=== PATIENT | female | born 2000 | race Caucasian/White ===

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

== ENCOUNTER 2021-01-31 05:40 | Emergency (ER) | payer MEDICAID ==
[~2021-01-31] VITALS: Ht 165.1 cm; Wt 56.8 kg
[2021-01-31] MEDS ORDERED: SODIUM CHLORIDE 0.9% 1,000ML IVBOLUS ONE (06:00)
[2021-01-31] MEDS ORDERED: SODIUM CHLORIDE FLUSH 10ML SYR IVF ONE (06:00)
[2021-01-31 06:20] LABS: BASOPHILS % (AUTO) 0 % (0-1); EOSINOPHILS % (AUTO) 0 % (1-7); LYMPHOCYTES % (AUTO) 14 % (22-44); MEAN CORPUSCULAR HEMOGLOBIN 33.1 pg (27.0-34.8); MEAN CORPUSCULAR HGB CONC 34.7 g/dL (32.4-35.8); MEAN PLATELET VOLUME 6.9 fL (7.4-10.4); MONOCYTES % (AUTO) 12 % (2-9); NEUTROPHILS % (AUTO) 74 % (42-75); PLATELET COUNT 210 x10^3/uL (130-400); RED BLOOD COUNT 4.29 x10^6/uL (3.82-5.3); RED CELL DISTRIBUTION WIDTH 12.7 % (9.6-15.2)
[2021-01-31 06:33] LABS: ALANINE AMINOTRANSFERASE 20 U/L (12-78); ALBUMIN 3.2 g/dL (3.4-5.0); ANION GAP 8 mmol/L (5-15); CALCIUM 7.9 mg/dL (8.5-10.1); CHLORIDE 106 mmol/L (98-107); CREATININE 0.37 mg/dL (0.55-1.02)
[2021-01-31 06:49] LABS: ALKALINE PHOSPHATASE 50 U/L (45-117); BILIRUBIN,TOTAL 0.5 mg/dL (0.2-1.0); TOTAL PROTEIN 7.2 g/dL (6.4-8.2)
--- NOTE | 2021-01-31 06:57 | NUR ---
RECEIVED REPORT FROM JACKSON JESUS RN. PT RESTING ON APOORVA. VSS. UA COLLECTED, LABELED AND SENT TO LAB.
[2021-01-31 07:40] LABS: MICROSCOPIC INDICATED
--- NOTE | 2021-01-31 07:59 | NUR ---
PT CHART REVIEWED AND PLACED FOR RECHECK.
--- NOTE | 2021-01-31 08:00 | NUR ---
PT RESTING ON GURNEY. NADN. AGUILAR.
[2021-01-31 08:34] LABS: MICROSCOPIC NOT IND
[2021-01-31 09:06] VITALS: BP 101/59
--- NOTE | 2021-01-31 09:07 | NUR ---
PT RESTING ON GURNEY. NADN. AGUILAR.
== END 2021-01-31 09:30 | disposition home or self-care (01) ==
LOC: ED 06:03
DX: O21.1 Hyperemesis gravidarum with metabolic disturbance (principal); Z3A.13 13 weeks gestation of pregnancy; J45.909 Unspecified asthma, uncomplicated; Z86.718 Personal history of other venous thrombosis and embolism
CPT/HCPCS: 36415; 76801; 80053; 81001; 81003; 84702; 85025; 87086; 96360; 99284; J7030

== ENCOUNTER 2021-02-04 16:31 | Emergency (ER) | payer MEDICAID ==
[~2021-02-04] VITALS: Ht 165.1 cm; Wt 55.0 kg
[2021-02-04 17:16] VITALS: BP 97/57
--- NOTE | 2021-02-04 17:50 | NUR ---
No answer in lobby
--- NOTE | 2021-02-04 17:55 | NUR ---
no answer x 2 for xray lab couldn't find them either
--- NOTE | 2021-02-04 18:22 | NUR ---
no answer in lobby
== END 2021-02-04 18:25 | disposition left against medical advice (07) ==
LOC: ED 17:00
DX: O26.892 Other specified pregnancy related conditions, second trimester (principal); R06.00 Dyspnea, unspecified; Z20.822 Contact with and (suspected) exposure to COVID-19; Z3A.14 14 weeks gestation of pregnancy
CPT/HCPCS: 99281

== ENCOUNTER 2021-03-04 07:22 | Emergency (ER) | payer MEDICAID ==
[~2021-03-04] VITALS: Ht 162.6 cm; Wt 56.7 kg
--- NOTE | 2021-03-04 08:23 | NUR ---
PT STATES N/V STARTING LAST NIGHT. STATES HX OF SAME, HOWEVER MORE THEN 10 DAYS AGO, AND STATES SHE "HAS BEEN DOING WELL" LATELY. WHEN ROOM ENTERED FOR ASSESSMENT, PT EATING FOOD AND LAUGHING WITH FRIEND. PT CURRENTLY DENIES ANY NAUSEA. LOUIE MOE AT BEDSIDE FOR ASSESSMENT. PER LOUIE, D/C IV START AND FLUID BOLUS PT IS CURRENTLY TOLERATING PO WELL. PT TAKEN TO U/S FOR EXAM. CONT TO MONITOR.
[2021-03-04] MEDS ORDERED: SODIUM CHLORIDE 0.9% 1,000ML IVBOLUS ONE (08:30)
[2021-03-04] MEDS ORDERED: ONDANSETRON 2MG/ML, 2ML IVPush ONE (08:30)
[2021-03-04] MEDS ORDERED: SODIUM CHLORIDE FLUSH 10ML SYR IVF ONE (08:30)
[2021-03-04 09:35] LABS: BASOPHILS % (AUTO) 0 % (0-1); EOSINOPHILS % (AUTO) 0 % (1-7); LYMPHOCYTES % (AUTO) 10 % (22-44); MEAN CORPUSCULAR HEMOGLOBIN 32.8 pg (27.0-34.8); MEAN CORPUSCULAR HGB CONC 34.5 g/dL (32.4-35.8); MEAN PLATELET VOLUME 6.8 fL (7.4-10.4); MONOCYTES % (AUTO) 5 % (2-9); NEUTROPHILS % (AUTO) 86 % (42-75); PLATELET COUNT 304 x10^3/uL (130-400); RED BLOOD COUNT 4.29 x10^6/uL (3.82-5.3); RED CELL DISTRIBUTION WIDTH 12.9 % (9.6-15.2)
[2021-03-04 09:43] LABS: ALBUMIN 3.3 g/dL (3.4-5.0); ANION GAP 9 mmol/L (5-15); CALCIUM 8.8 mg/dL (8.5-10.1); CHLORIDE 106 mmol/L (98-107)
--- NOTE | 2021-03-04 09:44 | NUR ---
PT D/C'D PER ORDERS. PT VERBALIZED UNDERSTANDING OF D/C ORDERS, STEADY GAIT UPON D/C.
[2021-03-04 09:46] VITALS: BP 105/76
== END 2021-03-04 09:48 | disposition home or self-care (01) ==
LOC: ED 07:42
DX: O26.892 Other specified pregnancy related conditions, second trimester (principal); O99.342 Other mental disorders complicating pregnancy, second trimester; F41.1 Generalized anxiety disorder; R06.4 Hyperventilation; O21.8 Other vomiting complicating pregnancy; Z3A.19 19 weeks gestation of pregnancy
CPT/HCPCS: 36415; 76815; 80048; 82040; 85025; 99284